=== PATIENT | female | born 1990 | race Caucasian/White ===

== ENCOUNTER 2016-03-20 18:46 | Emergency (ER) | payer OTHER ==
[2016-03-20 18:56] VITALS: TEMP 98.4
--- NOTE | 2016-03-20 19:11 | EDPHY ---
H & P Stated Complaint: LLQ Pain HPI/ROS: CHIEF COMPLAINT:Pelvic pain. HISTORY OF PRESENT ILLNESS: The patient is a 25-year-old female with right- sided chronic pelvic pain presenting with one month of left-sided pelvic pain that has worsened in the past 2 days. The pain is described as squeezing and cramping. It is constant and severe in nature. She admits associated headaches, nonbloody diarrhea, and chills. She denies fever, vomiting, urinary symptoms, vaginal discharge, or other complaints. No recent travel. REVIEW OF SYSTEMS: A ten point review of systems was performed and is negative with the exception of the items mentioned in the HPI. Source: Patient Exam Limitations: No limitations - Personal History Current Tetanus/Diphtheria Vaccine: Yes Current Tetanus Diphtheria and Acellular Pertussis (TDAP): Yes - Medical/Surgical History Hx Asthma: No Hx Chronic Respiratory Disease: No Hx Diabetes: No Hx Cardiac Disease: No Hx Renal Disease: No Hx Cirrhosis: No Hx Alcoholism: No Hx HIV/AIDS: No Hx Splenectomy or Spleen Trauma: No Other PMH: Chronic Pelvic Pain, Anxiety - Social History Smoking Status: Current every day smoker Additional Social History: Smoker, occasional alcohol use. She is , her accompanies her. - Physical Exam Exam: General Appearance: Alert. Vital signs reviewed. Blood pressure 94/68, heart rate 115 at triage. Eyes: Pupils equal and round, no conjunctival injection, no discharge. Anicteric. ENT, Mouth: Mucous membranes are moist, no oropharyngeal erythema or edema. Neck: No lymphadenopathy, supple. Respiratory: Lungs are clear to auscultation; no wheezes, rales, or rhonchi. Cardiovascular: Regular rate and rhythm; no murmur, rub, or gallop. Gastrointestinal: Abdomen is soft with tenderness in the left lower quadrant, no guarding or rebound, no masses or organomegaly, bowel sounds normal. Skin: Warm and dry, no rashes on exposed skin, normal color. Back: Nontender to palpation over the thoracolumbar spine. No CVAT. Extremities: No lower extremity edema, no calf tenderness or swelling. Neurological: Alert and oriented. Moving all four extremities easily and equally. Psychiatric: Normal affect. Constitutional: Initial Vital Signs Temperature (C) 36.9 C 03/20/16 18:54 Heart Rate 115 H 03/20/16 18:54 Respiratory Rate 14 03/20/16 18:54 Blood Pressure 94/68 L 03/20/16 18:54 O2 Sat (%) 94 03/20/16 18:54 O2 Delivery Mode Room Air Allergies/Adverse Reactions: morphine Allergy (Verified 03/20/16 18:54) NSAIDS (Non-Steroidal Anti-Inflamma Allergy (Verified 03/20/16 18:54) prochlorperazine [From Compazine] Allergy (Verified 03/20/16 18:54) prochlorperazine edisylate [From Compazine] Allergy (Verified 03/20/16 18:54) prochlorperazine maleate [From Compazine] Allergy (Verified 03/20/16 18:54) promethazine HCl [From Phenergan] Allergy (Verified 03/20/16 18:54) Home Medications: Medication Instructions Recorded oxyCODONE/APAP 5/325 [Percocet 1 - 2 tab PO Q4H PRN #10 tab 03/20/16 5/325 (RX)] Medical Decision Making - Diagnostics Imaging: Study: Ultrasound of the: Pelvis. Indication: Pain. Results: Negative pelvic ultrasound with minimal fluid noted in the endometrial canal. The study was read by the radiologist, Dr. Marcial. I viewed the images myself on the PACS system. ED Course/Re-evaluation: An IV was established and labs ordered. Dilaudid 1mg IV administered for pain, along with 4mg IV Zofran for nausea. 2222: Reassessed patient. Discussed results of ultrasound. The ultrasound is negative. There is no evidence of ovarian cyst, ruptured cyst, or torsion. She is not , so this is not an ectopic . She does not have any urinary symptoms. She does not have history of STD and denies vaginal discharge. CBC, chemistries, and test are all negative/normal. On reexamination she continues with some mild left lower quadrant tenderness, no peritoneal signs. She is feeling better after pain medication. She is reassured that the ultrasound does not show an ovarian cyst. She has been having diarrhea and it is possible that this is pain secondary to an enteritis. She did not have diarrheal stool while in the emergency department. She does not appear clinically dehydrated. She is comfortable going home with a Percocet prepack. I answered all of her questions. She was given return precautions prior to discharge. Differential Diagnosis: Abdominal pain including but not limited to diverticulitis, ovarian torsion, ovarian cyst, ectopic , gastritis, enteritis, and urinary tract infection. - Data Points Laboratory Results: Laboratory Results 03/20/16 19:30 03/20/16 19:30 Medications Given: Discontinued Medications Hydromorphone HCl (Dilaudid) 1 mg IVP EDNOW ONE Stop: 03/20/16 19:38 Last Admin: 03/20/16 19:42 Dose: 1 mg Hydromorphone HCl (Dilaudid) 0.5 mg IVP EDNOW ONE Stop: 03/20/16 20:16 Last Admin: 03/20/16 20:16 Dose: 0.5 mg Ondansetron HCl (Zofran) 4 mg IVP EDNOW ONE Stop: 03/20/16 19:37 Last Admin: 03/20/16 19:40 Dose: 4 mg Ondansetron HCl (Zofran) 4 mg IVP EDNOW ONE Stop: 03/20/16 20:15 Last Admin: 03/20/16 20:14 Dose: 4 mg Oxycodone/Acetaminophen (Percocet 5/325mg Prepack#4) 1 btl TAKEHOME EDNOW ONE Stop: 03/20/16 23:00 Last Admin: 03/20/16 23:10 Dose: 1 btl Departure - Departure Disposition: Home, Routine, Self-Care Clinical Impression: Pelvic pain Diarrhea Qualifiers: Diarrhea type: unspecified type Qualifier Code: (R19.7) Diarrhea, unspecified Condition: Good Instructions: Oxycodone/Acetaminophen (By mouth), Acute Diarrhea (ED), Pelvic Pain in Women (ED) Additional Instructions: Drink plenty of fluids and be sure to get rest. Call your primary care provider tomorrow to set up a follow up appointment. If you need a primary care provider you have been given the telephone number of one. Return to the emergency department if you experience serious worsening of condition. Referrals: Imtiaz Bernard MD [Medical Doctor] - As per Instructions Prescriptions: oxyCODONE/APAP 5/325 [Percocet 5/325 (RX)] 1 - 2 tab PO Q4H PRN #10 tab PRN Reason: Pain, Severe Report Scribed for: Bailey Elaine Report Scribed by: Gabriel Jurado Date of Report: 03/20/16 Time of Report: 19:18 Physician Review and Approval Statement: 03/20/16 19:11 Portions of this note were transcribed by the medical representative. I, Dr. Bailey Elaine, personally performed the history, physical exam, and medical decision- making; and confirmed the accuracy of the information in the transcribed note.
[2016-03-20] MEDS ORDERED: ONDANSETRON 4 MG/2 ML VIAL IVP ONE ×2 (19:36→20:14)
[2016-03-20] MEDS ORDERED: HYDROmorphONE/DILAUDID 1 MG/ML SYR IVP ONE ×2 (19:37→20:15)
[2016-03-20 19:41] LABS: % IMMATURE GRANULYOCYTES 0.3 % (0.0-1.1); ABSOLUTE IMMATURE GRANULOCYTES 0.02 10^3/uL (0.00-0.10); ADD DIFF? NO; ADD MORPH? NO; ADD SCAN? NO; ATYPICAL LYMPHOCYTE FLAG 10 (0-99); FRAGMENT RBC FLAG 0 (0-99); HEMATOCRIT 45.7 % (38.0-47.0); LEFT SHIFT FLG 0 (0-99); LIPEMIA HEMOLYSIS FLAG 80 (0-99); MEAN CELL HEMOGLOBIN 29.3 pg (27.9-34.1); MEAN CELL HEMOGLOBIN CONCENTR. 32.8 g/dL (32.4-36.7); MEAN CELL VOLUME 89.3 fL (81.5-99.8); MEAN PLATELET VOLUME 10.2 fL (8.7-11.7); PLATELET CLUMPS FLAG 0 (0-99); PLATELET COUNT 326 10^3/uL (150-400); RED BLOOD CELL COUNT 5.12 10^6/uL (4.18-5.33)
[2016-03-20 19:58] LABS: ALANINE AMINOTRANSFERASE 27 IU/L (9-52); ALBUMIN 4.6 g/dL (3.5-5.0); ALKALINE PHOSPHATASE 96 IU/L (38-126); ANION GAP 12 mEq/L (8-16); ASPARTATE AMINOTRANSFERASE 19 IU/L (14-46); BILIRUBIN,TOTAL 0.6 mg/dL (0.1-1.4); CALCIUM 10.2 mg/dL (8.5-10.4); CARBON DIOXIDE 22 mEq/l (22-31); CHLORIDE 109 mEq/L (97-110); CREATININE 0.7 mg/dL (0.6-1.0); GLOMERULAR FILTRATION RATE > 60; GLUCOSE 75 mg/dL (70-100); POTASSIUM 4.2 mEq/L (3.5-5.2); SODIUM 143 mEq/L (134-144); TOTAL PROTEIN 7.5 g/dL (6.3-8.2)
[2016-03-20] MEDS ORDERED: HYDROmorphONE/DILAUDID 1 MG/ML SYR ONE (20:08)
[2016-03-20] MEDS ORDERED: ONDANSETRON 4 MG/2 ML VIAL ONE (20:08)
[2016-03-20 20:35] VITALS: RESP 16
[2016-03-20 21:54] LABS: COLOR YELLOW; LEUKOCYTE ESTERASE,URINE NEGATIVE (NEGATIVE); NITRITE,URINE NEGATIVE (NEGATIVE)
--- NOTE | 2016-03-20 21:58 | US ---
Ultrasound Pelvis Complete (Transabdominal and Endovaginal) History: Pelvic pain in a 25-year-old female.. Technique: Transabdominal and endovaginal ultrasound images were obtained. Endovaginal images obtain ed for better evaluation of the uterine myometrium and adnexa. Findings: The uterus is normal in size and measures 4.3 x 2.0 x 2.9 cm. The endometrial measures 1-2 mm in thickness. There is a trace of fluid in the endometrial canal. No masses are seen. The ovaries are normal in size. The right ovary measures 2.0 x 2.0 x 2.3 cm and the left ovary measur es 1.2 x 2.0 x 1.7 cm. No ovarian cysts are identified. No adnexal masses. No free fluid is identif ied in the pelvis. Color and pulsed Doppler flow is identified in both ovaries . Impression: Negative pelvic ultrasound with minimal fluid noted in the endometrial canal. A preliminary report was called to Dr. Bailey Elaine at 2155 hours in the Emergency Department.
[2016-03-20] MEDS ORDERED: OXYCODONE/APAP 5/325MG PREPACK#4 BTL TAKEHOME ONE (22:59)
[2016-03-20 23:12] VITALS: BP 116/84; PULSE 74; O2SAT 96
== END 2016-03-20 23:11 | disposition home or self-care (01) ==
DX: R10.2 Pelvic and perineal pain (principal); R19.7 Diarrhea, unspecified; F17.200 Nicotine dependence, unspecified, uncomplicated
CPT/HCPCS: 96374; J1170; J2405

== ENCOUNTER 2016-03-28 18:42 | Emergency (ER) | payer OTHER ==
[2016-03-28] MEDS ORDERED: fentaNYL 100 MCG/2 ML INJ IVP ONE ×2 (19:20→19:51)
[2016-03-28] MEDS ORDERED: ONDANSETRON 4 MG/2 ML VIAL IVP ONE ×2 (19:20→19:51)
[2016-03-28] MEDS ORDERED: NS 1,000 ML IV ONE ×2 (19:20→20:15)
--- NOTE | 2016-03-28 19:25 | EDPHY ---
H & P Stated Complaint: abd pain, blood in stool, diarrhea HPI/ROS: CHIEF COMPLAINT: abdominal pain, bloody stools HISTORY OF PRESENT ILLNESS: Abdominal pain of several weeks duration. This is primarily on the left side of the abdomen. It does radiate across abdomen. Severe pain that is worse with palpation or ambulation and Valsalva. Associated with bloody diarrhea that has been on and off. The diarrhea has been present for over 2 weeks, only bloody over the past 2 days. No fever or chills. No urinary complaints. He does have chronic pelvic pain is unchanged. Has an appointment on Thursday with a elevator repairer but has not yet been seen by 1. No other associated complaints or modifying factors. PREVIOUS ABDOMINAL SURGERIES/DIAGNOSES: chronic pelvic pain NPO:This morning REVIEW OF SYSTEMS: Ten systems reviewed and are negative unless otherwise noted in the HPI EXAMINATION: General Appearance: Alert, no distress, Crying Head: normocephalic, atraumatic Eyes: Pupils equal and round, no conjunctival pallor or injection ENT, Mouth: Mucous membranes moist. Uvula midline. No lesions or edema. Neck: Normal inspection, supple, non-tender Respiratory: Lungs are clear to auscultation . No wheezing, rhonchi or crackles. Cardiovascular: Tachycardic rate with regular rhythm. No murmur. Pulses intact distally with symmetric DP pulses at 2+ Gastrointestinal: Abdomen is soft with severe tenderness on the left side. There is guarding. No tympany. No rigidity. No CVA tenderness. Neurological: A&O, nonfocal, normal gait Skin: Warm and dry, no rash . No petechiae or purpura. Extremities: Nontender, no pedal edema Psychiatric: Mood and affect normal DIFFERENTIAL DIAGNOSES: Including but not limited to UC, colitis, Crohn's, diverticulitis, enteritis, appendicitis, gastritis, GI bleed MDM: 7:20 p.m. abdominal pain with nausea but no vomiting. She does report bloody stools. Her history and examination are consistent with colitis versus ulcerative colitis. She does not have a prior diagnosis of this. She does have an appointment with the GI specialist on Thursday that she has not yet seen. 8:30 p.m. leukocytosis with ongoing pain. We have administered 2 rounds of IV pain medication and will consider further. She has also received 1 L fluid will receive a 2nd. Lactic acid is up we will recheck this after 2nd L fluid. 10:00 p.m. I have re-evaluated this patient. CT scan has been done but not read. We are contacting Radiology to inquire about the reading. Her vital signs remained stable and her pain is improved but not resolved. She is in no acute distress but asking for more pain medication at this time. 10:[address] Solis regarding the CT scan of the abdomen and pelvis. There are no acute findings. Specifically no colitis or diverticulitis. Appendix is surgically absent. No findings of any kind. 10:15 p.m. repeat lactic acid has normalized after IV fluid. I did suspect this was due to either appear inflammation or dehydration which does appear to be the case. She has no white count. Her vital signs are normal. Her CT scan does not Reveal any acute findings. She is feeling better at this time and is comfortable with the discharge home with pain medication and nausea medication. She has an appointment on Thursday with a elevator repairer. She is not certain of the name, but no she has an appointment with a physician that day. She will be discharged home with pain and nausea medications, instructions to return to the ER for worsening pain, fever, or bleeding or vomiting. She is comfortable with this plan and discharged home in stable condition ED Precautions: Worsening pain. Fever. Bloody stools. Bloody emesis. Constipation or diarrhea. SUPERVISION: Patient was evaluated in conjunction with the supervising physician. Please see their note for details. Source: Patient, Family Exam Limitations: No limitations - Personal History LMP (Females 10-55): IUD In Place Current Tetanus/Diphtheria Vaccine: Yes Current Tetanus Diphtheria and Acellular Pertussis (TDAP): Yes - Medical/Surgical History Hx Asthma: No Hx Chronic Respiratory Disease: No Hx Diabetes: No Hx Cardiac Disease: No Hx Renal Disease: No Hx Cirrhosis: No Hx Alcoholism: No Hx HIV/AIDS: No Hx Splenectomy or Spleen Trauma: No Other PMH: Chronic Pelvic Pain, Anxiety, - Social History Smoking Status: Current every day smoker Constitutional: Initial Vital Signs Temperature (C) 98.2 F 03/28/16 18:44 Heart Rate 115 H 03/28/16 18:44 Respiratory Rate 26 H 03/28/16 18:44 Blood Pressure 124/119 H 03/28/16 18:44 O2 Sat (%) 98 03/28/16 18:44 O2 Delivery Mode Room Air Allergies/Adverse Reactions: morphine Allergy (Verified 03/20/16 18:54) NSAIDS (Non-Steroidal Anti-Inflamma Allergy (Verified 03/20/16 18:54) prochlorperazine [From Compazine] Allergy (Verified 03/20/16 18:54) prochlorperazine edisylate [From Compazine] Allergy (Verified 03/20/16 18:54) prochlorperazine maleate [From Compazine] Allergy (Verified 03/20/16 18:54) promethazine HCl [From Phenergan] Allergy (Verified 03/20/16 18:54) Home Medications: Medication Instructions Recorded Ambien 03/28/16 Flexeril 03/28/16 GABAPENTIN 03/28/16 Lexapro 03/28/16 Ondansetron Odt [Zofran Odt 4 mg 4 mg PO Q6 PRN #14 tab 03/28/16 (*)] Risperdal 03/28/16 oxyCODONE HCL/ACETAMINOPHEN 1 each PO Q4-6PRN PRN #20 tablet 03/28/16 [Percocet 5-325 mg Tablet] Medical Decision Making - Data Points Laboratory Results: Laboratory Results 03/28/16 19:15 03/28/16 19:15 Microbiology Results: MICROBIOLOGY 03/28/16 20:14 Stool Gastrointestinal Tract Panel (PCR) - Final No Organism Detected Medications Given: Discontinued Medications Fentanyl (Sublimaze) 100 mcg IVP EDNOW ONE Stop: 03/28/16 19:21 Last Admin: 03/28/16 19:35 Dose: 100 mcg Fentanyl (Sublimaze) 100 mcg IVP EDNOW ONE Stop: 03/28/16 19:52 Last Admin: 03/28/16 20:02 Dose: 100 mcg Hydromorphone HCl (Dilaudid) 1 mg IVP EDNOW ONE Stop: 03/28/16 20:42 Last Admin: 03/28/16 20:41 Dose: 1 mg Hydromorphone HCl (Dilaudid) 0.5 mg IVP EDNOW ONE Stop: 03/28/16 21:13 Last Admin: 03/28/16 21:20 Dose: 0.5 mg Hydromorphone HCl (Dilaudid) 0.5 mg IVP EDNOW ONE Stop: 03/28/16 22:19 Last Admin: 03/28/16 22:34 Dose: Not Given Sodium Chloride (Ns) 1,000 mls @ 0 mls/hr IV ONCE ONE PRN Reason: Wide Open Stop: 03/28/16 19:21 Last Admin: 03/28/16 19:26 Dose: 1,000 mls Sodium Chloride (Ns) 1,000 mls @ 0 mls/hr IV ONCE ONE PRN Reason: Wide Open Stop: 03/28/16 20:16 Last Admin: 03/28/16 20:57 Dose: 1,000 mls Ondansetron HCl (Zofran) 4 mg IVP EDNOW ONE Stop: 03/28/16 19:21 Last Admin: 03/28/16 19:35 Dose: 4 mg Ondansetron HCl (Zofran) 4 mg IVP EDNOW ONE Stop: 03/28/16 19:52 Last Admin: 03/28/16 20:02 Dose: 4 mg Oxycodone/Acetaminophen (Percocet 5/325) 1 tab PO EDNOW ONE Stop: 03/28/16 22:19 Last Admin: 03/28/16 22:35 Dose: Not Given Oxycodone/Acetaminophen (Percocet 5/325) 2 tab PO EDNOW ONE Stop: 03/28/16 22:26 Last Admin: 03/28/16 22:34 Dose: 2 tab Oxycodone/Acetaminophen (Percocet 5/325mg Prepack#4) 1 btl TAKEHOME EDNOW ONE Stop: 03/28/16 22:37 Last Admin: 03/28/16 22:47 Dose: 1 btl Departure - Departure Disposition: Home, Routine, Self-Care Clinical Impression: Abdominal pain Qualifiers: Abdominal location: left lower quadrant Qualified Code(s): R10.32 - Left lower quadrant pain Condition: Good Instructions: Oxycodone/Acetaminophen (By mouth), Rectal Bleeding (ED), Ulcerative Colitis (ED) Referrals: NONE *PRIMARY CARE P,. [Primary Care Provider] - As per Instructions Felton Thompson MD [Medical Doctor] - As per Instructions Stand Alone Forms: Work Excuse Prescriptions: Ondansetron Odt [Zofran Odt 4 mg (*)] 4 mg PO Q6 PRN #14 tab PRN Reason: Nausea/Vomiting, Use 1st oxyCODONE HCL/ACETAMINOPHEN [Percocet 5-325 mg Tablet] 1 each PO Q4-6PRN PRN # 20 tablet PRN Reason: Pain, Breakthrough
[2016-03-28 19:27] LABS: % IMMATURE GRANULYOCYTES 0.4 % (0.0-1.1); ABSOLUTE IMMATURE GRANULOCYTES 0.03 10^3/uL (0.00-0.10); ADD DIFF? NO; ADD MORPH? NO; ADD SCAN? NO; ATYPICAL LYMPHOCYTE FLAG 20 (0-99); FRAGMENT RBC FLAG 0 (0-99); HEMATOCRIT 43.4 % (38.0-47.0); HEMOGLOBIN 14.3 g/dL (12.6-16.3); LEFT SHIFT FLG 0 (0-99); LIPEMIA HEMOLYSIS FLAG 80 (0-99); MEAN CELL HEMOGLOBIN 29.3 pg (27.9-34.1); MEAN CELL HEMOGLOBIN CONCENTR. 32.9 g/dL (32.4-36.7); MEAN CELL VOLUME 88.9 fL (81.5-99.8); MEAN PLATELET VOLUME 10.2 fL (8.7-11.7); PLATELET CLUMPS FLAG 10 (0-99); PLATELET COUNT 349 10^3/uL (150-400); RED BLOOD CELL COUNT 4.88 10^6/uL (4.18-5.33); RED CELL DISTRIBUTION WIDTH 14.9 % (11.5-15.2)
[2016-03-28 19:36] LABS: INR 1.03 (0.83-1.16); PROTIME(PATIENT) 13.4 SEC (12.0-15.0)
[2016-03-28 19:37] LABS: APTT 29.7 SEC (23.0-38.0)
[2016-03-28 19:46] LABS: ALANINE AMINOTRANSFERASE 25 IU/L (9-52); ALBUMIN 4.7 g/dL (3.5-5.0); ALKALINE PHOSPHATASE 85 IU/L (38-126); ANION GAP 13 mEq/L (8-16); ASPARTATE AMINOTRANSFERASE 25 IU/L (14-46); BILIRUBIN,TOTAL 0.5 mg/dL (0.1-1.4); BILIRUBIN-CONJUGATED 0.5 mg/dL (0.0-0.5); CALCIUM 9.8 mg/dL (8.5-10.4); CARBON DIOXIDE 20 mEq/l (22-31); CHLORIDE 107 mEq/L (97-110); CREATININE 0.6 mg/dL (0.6-1.0); GLOMERULAR FILTRATION RATE > 60; GLUCOSE 79 mg/dL (70-100); POTASSIUM 4.5 mEq/L (3.5-5.2); SODIUM 140 mEq/L (134-144); TOTAL PROTEIN 7.7 g/dL (6.3-8.2)
[2016-03-28] MEDS ORDERED: ONDANSETRON 4 MG/2 ML VIAL ONE (19:52)
[2016-03-28] MEDS ORDERED: fentaNYL 100 MCG/2 ML INJ ONE (19:52)
[2016-03-28] MEDS ORDERED: IOPAMIDOL (ISOVUE-300) 100 ML BTL IV ONE (19:59)
[2016-03-28 20:05] VITALS: RESP 16
[2016-03-28 20:22] LABS: COLOR YELLOW; LEUKOCYTE ESTERASE,URINE NEGATIVE (NEGATIVE); NITRITE,URINE NEGATIVE (NEGATIVE)
[2016-03-28 20:24] LABS: LACGHOST ORDER
[2016-03-28] MEDS ORDERED: HYDROmorphONE/DILAUDID 1 MG/ML SYR ONE (20:32)
[2016-03-28] MEDS ORDERED: HYDROmorphONE/DILAUDID 1 MG/ML SYR IVP ONE ×3 (20:41→22:18)
[2016-03-28] MEDS ORDERED: OXYCODONE/APAP 5/325 TAB PO ONE ×2 (22:18→22:25)
[2016-03-28] MEDS ORDERED: OXYCODONE/APAP 5/325MG PREPACK#4 BTL TAKEHOME ONE (22:36)
[2016-03-28 22:49] VITALS: BP 112/65; PULSE 78; TEMP 98.1; O2SAT 97
== END 2016-03-28 22:48 | disposition home or self-care (01) ==
DX: R10.32 Left lower quadrant pain (principal); F17.200 Nicotine dependence, unspecified, uncomplicated
CPT/HCPCS: 96374; J1170; J2405; J3010; Q9967

== ENCOUNTER 2016-06-02 19:27 | Emergency (ER) | payer OTHER ==
[2016-06-02] MEDS ORDERED: ONDANSETRON 4 MG/2 ML VIAL IVP ONE (20:44)
[2016-06-02] MEDS ORDERED: MAG HYDROX/AL HYDROX/SIMETH 30 ML UDCUP PO ONE (20:44)
[2016-06-02] MEDS ORDERED: FAMOTIDINE 20 MG/NACL 50 ML IV ONE (20:44)
[2016-06-02] MEDS ORDERED: LIDOCAINE 2% VISCOUS 15 ML UDCUP PO ONE (20:44)
[2016-06-02] MEDS ORDERED: ONDANSETRON 4 MG/2 ML VIAL ONE (20:45)
--- NOTE | 2016-06-02 20:49 | EDPHY ---
H & P Time Seen by Provider: 06/02/16 20:17 HPI/ROS: CHIEF COMPLAINT: Abdominal pain HISTORY OF PRESENT ILLNESS: Patient is a 18-year-old female with a history of anxiety who presents to the emergency department with epigastric abdominal pain. She states that she has had 3 episodes since last night. They occur every time she takes anything by mouth. She describes it as a "labor type pain " except in her epigastrium. She denies any fevers or chills. She has had nausea with no vomiting. She denies diarrhea. She has had no dysuria frequency. No chest pain or shortness of breath. REVIEW OF SYSTEMS: My complete review of systems is negative except as mentioned in the HPI. Past Medical/Surgical History: Includes anxiety Past surgical history: Includes appendectomy Social history: The patient smokes. She is . Smoking Status: Current every day smoker Physical Exam: Vitals noted GENERAL: Anxious, in no acute distress, alert. HEENT: Eyes normal to inspection, normal pharynx, no signs of dehydration. NECK: No thyromegaly, no lymphadenopathy, supple. RESPIRATORY: Clear to auscultation bilaterally, no rales, rhonchi or wheezing. CVS: Regular rate and rhythm, no rubs, murmurs, or gallops. ABDOMEN: Soft, nontender, nondistended, no organomegaly. Benign exam. BACK: Normal to inspection, no CVA tenderness. SKIN: Normal color, no rash, warm, dry. No pallor. EXTREMITIES: No pedal edema, no calf tenderness, no Homans sign or cords, no joint swelling. NEURO/PSYCH: Alert and oriented x3, anxious, normal motor sensory exam. Constitutional: Initial Vital Signs Temperature (C) 36.6 C 06/02/16 19:43 Heart Rate 135 H 06/02/16 19:43 Respiratory Rate 18 06/02/16 19:43 Blood Pressure 120/85 H 06/02/16 19:43 O2 Sat (%) 98 06/02/16 19:43 O2 Delivery Mode Room Air Allergies/Adverse Reactions: amoxicillin Allergy (Verified 06/02/16 19:42) ciprofloxacin Allergy (Verified 06/02/16 19:42) clarithromycin Allergy (Verified 06/02/16 19:42) doxycycline Allergy (Verified 06/02/16 19:42) metronidazole [From Flagyl] Allergy (Verified 06/02/16 19:42) morphine Allergy (Verified 03/20/16 18:54) nitrofurantoin [From Macrobid] Allergy (Verified 06/02/16 19:42) NSAIDS (Non-Steroidal Anti-Inflamma Allergy (Verified 03/20/16 18:54) prochlorperazine [From Compazine] Allergy (Verified 03/20/16 18:54) prochlorperazine edisylate [From Compazine] Allergy (Verified 03/20/16 18:54) prochlorperazine maleate [From Compazine] Allergy (Verified 03/20/16 18:54) promethazine HCl [From Phenergan] Allergy (Verified 03/20/16 18:54) Sulfa (Sulfonamide Antibiotics) Allergy (Verified 06/02/16 19:42) Home Medications: Medication Instructions Recorded Ambien 03/28/16 Flexeril 03/28/16 GABAPENTIN 03/28/16 Lexapro 03/28/16 Ondansetron Odt [Zofran Odt 4 mg 4 mg PO Q6 PRN #14 tab 03/28/16 (*)] Risperdal 03/28/16 Hydrocodone/APAP 5/325 [[place] 1 - 2 tab PO Q4 #9 tab 06/02/16 5/325 (RX)] LORazepam [Ativan (*)] 1 mg PO TID #9 tab 06/02/16 Medical Decision Making ED Course/Re-evaluation: In the emergency department I discussed possible etiologies with the patient. I answered all her questions. IV was placed. She was given normal saline 1 L for hydration. She is given Zofran 4 mg IV for nausea. She was given a GI cocktail for her discomfort. Patient was also given Pepcid 20 mg IV for discomfort. Laboratory studies are pending. Patient's laboratory studies were remarkable for normal CBC. Her chemistry panel is unremarkable. Her LFTs were normal. She had mildly elevated protein. Negative . I rechecked the patient. She stated her nausea has improved. However, when drinking the GI cocktail she complained of discomfort. She appears very anxious on repeat exam. Her abdomen is still soft, nontender nondistended. She was given Ativan 1 mg IV. An ultrasound of her right upper quadrant and chest x-ray were ordered. Eye jason with Jael Doe. She will follow up on the ultrasound and chest x- ray results. Differential Diagnosis: My differential includes but is not limited to pancreatitis, cholecystitis, cholangitis, GERD, hiatal hernia, ACS, acute CO, peptic ulcer disease - Data Points Laboratory Results: Laboratory Results 06/02/16 20:02 06/02/16 20:02 06/02/16 06/02/16 06/02/16 20:02 20:02 20:02 WBC 8.26 10^3/uL 10^3/uL (3.80-9.50) RBC 5.24 10^6/uL 10^6/uL (4.18-5.33) Hgb 15.3 g/dL g/dL (12.6-16.3) Hct 46.4 % % (38.0-47.0) MCV 88.5 fL fL (81.5-99.8) MCH 29.2 pg pg (27.9-34.1) MCHC 33.0 g/dL g/dL (32.4-36.7) RDW 15.1 % % (11.5-15.2) Plt Count 360 10^3/uL 10^3/uL (150-400) MPV 10.2 fL fL (8.7-11.7) Neut % (Auto) 56.9 % % (39.3-74.2) Lymph % (Auto) 35.8 % % (15.0-45.0) [place] % (Auto) 5.3 % % (4.5-13.0) Eos % (Auto) 1.2 % % (0.6-7.6) Baso % (Auto) 0.6 % % (0.3-1.7) Nucleat RBC Rel Count 0.0 % % (0.0-0.2) Absolute Neuts (auto) 4.69 10^3/uL 10^3/uL (1.70-6.50) Absolute Lymphs (auto) 2.96 10^3/uL 10^3/uL (1.00-3.00) Absolute Monos (auto) 0.44 10^3/uL 10^3/uL (0.30-0.80) Absolute Eos (auto) 0.10 10^3/uL 10^3/uL (0.03-0.40) Absolute Basos (auto) 0.05 10^3/uL 10^3/uL (0.02-0.10) Absolute Nucleated RBC 0.00 10^3/uL 10^3/uL (0-0.01) Immature Gran % 0.2 % % (0.0-1.1) Immature Gran # 0.02 10^3/uL 10^3/uL (0.00-0.10) Sodium 141 mEq/L mEq/L (134-144) Potassium 4.0 mEq/L mEq/L (3.5-5.2) Chloride 105 mEq/L mEq/L (97-110) Carbon Dioxide 23 mEq/l mEq/l (22-31) Anion Gap 13 mEq/L mEq/L (8-16) BUN 8 mg/dL mg/dL (7-23) Creatinine 0.7 mg/dL mg/dL (0.6-1.0) Estimated GFR > 60 Glucose 85 mg/dL mg/dL (70-100) Calcium 10.4 mg/dL mg/dL (8.5-10.4) Total Bilirubin 0.9 mg/dL mg/dL (0.1-1.4) Conjugated Bilirubin 0.5 mg/dL mg/dL (0.0-0.5) Unconjugated Bilirubin 0.4 mg/dL mg/dL (0.0-1.1) AST 23 IU/L IU/L (14-46) ALT 21 IU/L IU/L (9-52) Alkaline Phosphatase 99 IU/L IU/L (38-126) Total Protein 8.4 g/dL H g/dL (6.3-8.2) Albumin 5.2 g/dL H g/dL (3.5-5.0) Lipase 71.0 IU/L IU/L (23-300) Beta HCG, Qual NEGATIVE Medications Given: Discontinued Medications Al Hydroxide/Mg Hydroxide (Maalox Susp) 30 ml PO ONCE ONE Stop: 06/02/16 20:45 Last Admin: 06/02/16 20:52 Dose: 30 ml Famotidine/Sodium Chloride (Pepcid 20 Mg (Premix)) 50 mls @ 200 mls/hr IV EDNOW ONE Stop: 06/02/16 20:58 Last Admin: 06/02/16 20:50 Dose: 50 mls Sodium Chloride (Ns) 1,000 mls @ 0 mls/hr IV ONCE ONE PRN Reason: Wide Open Stop: 06/02/16 20:54 Last Admin: 06/02/16 21:08 Dose: 1,000 mls Lidocaine (Lidocaine 2% Viscous) 15 ml PO ONCE ONE Stop: 06/02/16 20:45 Last Admin: 06/02/16 20:53 Dose: 15 ml Ondansetron HCl (Zofran) 4 mg IVP EDNOW ONE Stop: 06/02/16 20:45 Last Admin: 06/02/16 20:53 Dose: 4 mg Departure - Departure Disposition: Home, Routine, Self-Care Clinical Impression: Abdominal pain Qualifiers: Abdominal location: epigastric Qualified Code(s): R10.13 - Epigastric pain Condition: Good Instructions: Abdominal Pain (ED) Additional Instructions: Return with increasing abdominal pain, nausea, vomiting, fever, or any other concerns. Referrals: Jamari Mills MD, FACG [Medical Doctor] - 3-4 days, if not improved Prescriptions: Hydrocodone/APAP 5/325 [[place] 5/325 (RX)] 1 - 2 tab PO Q4 #9 tab LORazepam [Ativan (*)] 1 mg PO TID #9 tab
[2016-06-02 20:52] LABS: % IMMATURE GRANULYOCYTES 0.2 % (0.0-1.1); ABSOLUTE IMMATURE GRANULOCYTES 0.02 10^3/uL (0.00-0.10); ADD DIFF? NO; ADD MORPH? NO; ADD SCAN? NO; ATYPICAL LYMPHOCYTE FLAG 10 (0-99); FRAGMENT RBC FLAG 0 (0-99); HEMATOCRIT 46.4 % (38.0-47.0); HEMOGLOBIN 15.3 g/dL (12.6-16.3); LEFT SHIFT FLG 0 (0-99); LIPEMIA HEMOLYSIS FLAG 80 (0-99); MEAN CELL HEMOGLOBIN 29.2 pg (27.9-34.1); MEAN CELL VOLUME 88.5 fL (81.5-99.8); MEAN PLATELET VOLUME 10.2 fL (8.7-11.7); PLATELET CLUMPS FLAG 0 (0-99); PLATELET COUNT 360 10^3/uL (150-400); RED BLOOD CELL COUNT 5.24 10^6/uL (4.18-5.33); RED CELL DISTRIBUTION WIDTH 15.1 % (11.5-15.2)
[2016-06-02] MEDS ORDERED: NS 1,000 ML IV ONE (20:53)
[2016-06-02] MEDS ORDERED: FAMOTIDINE 20 MG/2 ML SDV ONE (20:55)
[2016-06-02 20:58] LABS: ALANINE AMINOTRANSFERASE 21 IU/L (9-52); ALBUMIN 5.2 g/dL (3.5-5.0); ALKALINE PHOSPHATASE 99 IU/L (38-126); ANION GAP 13 mEq/L (8-16); ASPARTATE AMINOTRANSFERASE 23 IU/L (14-46); BILIRUBIN,TOTAL 0.9 mg/dL (0.1-1.4); BILIRUBIN-CONJUGATED 0.5 mg/dL (0.0-0.5); BILIRUBIN-UNCONJUGATED 0.4 mg/dL (0.0-1.1); CALCIUM 10.4 mg/dL (8.5-10.4); CARBON DIOXIDE 23 mEq/l (22-31); CHLORIDE 105 mEq/L (97-110); CREATININE 0.7 mg/dL (0.6-1.0); GLOMERULAR FILTRATION RATE > 60; GLUCOSE 85 mg/dL (70-100); SODIUM 141 mEq/L (134-144); TOTAL PROTEIN 8.4 g/dL (6.3-8.2)
[2016-06-02] MEDS ORDERED: LORazepam 2 MG/ML INJ IVP ONE (21:21)
[2016-06-02] MEDS ORDERED: LORAZEPAM 1 MG PREPACK#4 BTL TAKEHOME ONE (22:30)
[2016-06-02 22:51] VITALS: BP 113/87; PULSE 89; RESP 16; TEMP 98.4; O2SAT 97
== END 2016-06-02 22:50 | disposition home or self-care (01) ==
DX: R10.13 Epigastric pain (principal); F17.200 Nicotine dependence, unspecified, uncomplicated
CPT/HCPCS: 96365; J2060; J2405

== ENCOUNTER 2016-09-07 12:20 | Emergency (ER) | payer OTHER ==
[2016-09-07 12:28] VITALS: TEMP 97.5
[2016-09-07 12:52] LABS: % IMMATURE GRANULYOCYTES 0.4 % (0.0-1.1); ABSOLUTE IMMATURE GRANULOCYTES 0.03 10^3/uL (0.00-0.10); ADD DIFF? NO; ADD MORPH? NO; ADD SCAN? NO; ATYPICAL LYMPHOCYTE FLAG 10 (0-99); FRAGMENT RBC FLAG 0 (0-99); HEMATOCRIT 45.2 % (38.0-47.0); HEMOGLOBIN 14.6 g/dL (12.6-16.3); LEFT SHIFT FLG 0 (0-99); LIPEMIA HEMOLYSIS FLAG 80 (0-99); MEAN CELL HEMOGLOBIN 30.3 pg (27.9-34.1); MEAN CELL HEMOGLOBIN CONCENTR. 32.3 g/dL (32.4-36.7); MEAN CELL VOLUME 93.8 fL (81.5-99.8); MEAN PLATELET VOLUME 9.8 fL (8.7-11.7); PLATELET CLUMPS FLAG 10 (0-99); PLATELET COUNT 330 10^3/uL (150-400); RED BLOOD CELL COUNT 4.82 10^6/uL (4.18-5.33); RED CELL DISTRIBUTION WIDTH 13.9 % (11.5-15.2)
[2016-09-07] MEDS ORDERED: NS 1,000 ML IV ONE ×4 (12:52→15:54)
[2016-09-07] MEDS ORDERED: LORazepam 2 MG/ML INJ IVP ONE (12:52)
[2016-09-07] MEDS ORDERED: ONDANSETRON 4 MG/2 ML VIAL IVP ONE (12:52)
[2016-09-07 12:57] LABS: ANION GAP 16 mEq/L (8-16); CALCIUM 9.9 mg/dL (8.5-10.4); CARBON DIOXIDE 20 mEq/l (22-31); CHLORIDE 111 mEq/L (97-110); CREATININE 0.7 mg/dL (0.6-1.0); GLOMERULAR FILTRATION RATE > 60; GLUCOSE 69 mg/dL (70-100); POTASSIUM 4.2 mEq/L (3.5-5.2); SODIUM 147 mEq/L (134-144)
[2016-09-07] MEDS ORDERED: HYDROmorphONE/DILAUDID 1 MG/ML SYR IVP ONE ×2 (12:57→14:59)
--- NOTE | 2016-09-07 13:05 | EDPHY ---
H & P Time Seen by Provider: 09/07/16 12:44 HPI/ROS: CHIEF COMPLAINT: Abdominal pain HISTORY OF PRESENT ILLNESS: Patient was seen previously this year in our ED for abdominal pain and on March [address] and on June 02 had a negative right upper quadrant ultrasound. She has implanted control and has had an appendectomy. She has also had a laparoscopy for chronic pelvic pain. She presents with abdominal pain which started around 9 or 10:00 p.m. last night and she describes it is a band around her upper abdomen radiating around into her back not better worse with position and associated with vomiting twice this morning but no diarrhea. No urinary or vaginal symptoms. No bleeding. She does not think she is . Symptoms severe and she says it radiates both up and down. REVIEW OF SYSTEMS: Eye: no change in vision ENT: no sore throat Cardiac: no chest pain or syncope Pulmonary: no cough or SOB, she and her family had a cold which lasted about a month recently but no current symptoms Abdomen: HPI Musculoskeletal: no back pain Skin: no rash Neuro: no headache Constitutional: no fever : no urinary symptoms A comprehensive 10 point review of systems is otherwise negative aside from elements mentioned in the history of present illness. PAST MEDICAL HISTORY: Appendectomy, chronic pain in the pelvis, anxiety. Social history: Tobacco smoker, only occasional alcohol. General Appearance: Alert and conversant, cooperative. Eyes: No scleral icterus. ENT, Mouth: Slightly dry mucous membranes. Respiratory: Normal respiratory effort, breath sounds equal, lungs are clear to auscultation. Cardiovascular: Regular rate and rhythm. Gastrointestinal: Mild diffuse abdominal tenderness but no rebound or guarding. Neurological: Alert and oriented x3. Normally conversant. Face symmetric, normal movement and sensation in all extremities. Skin: Warm and dry, no rashes. Musculoskeletal: No peripheral edema and no joint swelling. Psychiatric: Moderately uncomfortable, moderately anxious. She is sitting up rocking back and forth on the bed. Emergency Department course/MDM: Zofran 4 mg IV, Dilaudid 0.5 mg IV, and Ativan 1 mg IV for anxiety. Patient has a stated morphine allergy but has tolerated Dilaudid in the past without adverse reaction. Normal saline 2 L IV for nausea and vomiting. Labs to include test LFTs and lipase. 1415: Re-evaluated, still has some nausea, pain is decreased but still present. On exam abdomen is soft and nontender. No rebound or guarding. Negative Islas sign. Plan for IV Toradol, 10 mg IV Reglan, GI cocktail. 1520: Still having pain, some upper abdominal pain but no rebound or guarding. CT discussed and consented. 1720: Feeling better, not completely asymptomatic but wants to eat and wants to leave which I think is reasonable. Results discussed. No peritoneal signs at this time. Ovarian or gynecologic source considered but think unlikely given all symptoms above the umbilicus. CT imaging noted, doubt renal infarct with bilateral and epigastric symptoms, urine negative for pyelonephritis. Smoking Status: Current every day smoker Constitutional: Initial Vital Signs Temperature (C) 36.4 C 09/07/16 12:25 Heart Rate 106 H 09/07/16 12:25 Respiratory Rate 18 09/07/16 12:25 Blood Pressure 101/78 09/07/16 12:25 O2 Sat (%) 98 09/07/16 12:25 O2 Delivery Mode Room Air Allergies/Adverse Reactions: amoxicillin Allergy (Verified 06/02/16 19:42) ciprofloxacin Allergy (Verified 06/02/16 19:42) clarithromycin Allergy (Verified 06/02/16 19:42) doxycycline Allergy (Verified 06/02/16 19:42) metronidazole [From Flagyl] Allergy (Verified 06/02/16 19:42) morphine Allergy (Verified 03/20/16 18:54) nitrofurantoin [From Macrobid] Allergy (Verified 06/02/16 19:42) NSAIDS (Non-Steroidal Anti-Inflamma Allergy (Verified 03/20/16 18:54) prochlorperazine [From Compazine] Allergy (Verified 03/20/16 18:54) prochlorperazine edisylate [From Compazine] Allergy (Verified 03/20/16 18:54) prochlorperazine maleate [From Compazine] Allergy (Verified 03/20/16 18:54) promethazine HCl [From Phenergan] Allergy (Verified 03/20/16 18:54) Sulfa (Sulfonamide Antibiotics) Allergy (Verified 06/02/16 19:42) Home Medications: Medication Instructions Recorded Ambien 03/28/16 Flexeril 03/28/16 GABAPENTIN 03/28/16 Lexapro 03/28/16 Ondansetron Odt [Zofran Odt 4 mg 4 mg PO Q6 PRN #14 tab 03/28/16 (*)] Risperdal 03/28/16 Ondansetron Odt [Zofran Odt] 4 mg PO Q4PRN #6 tab 09/07/16 Medical Decision Making - Diagnostics Imaging Results: 1712: CT per Finer normal, except one area of decreased enhancement in right kidney. Differential Diagnosis: Differential considered including but not limited to pancreatitis, cholecystitis , reflux disease, viral or food related, gastroenteritis. - Data Points Laboratory Results: Laboratory Results 09/07/16 12:40 09/07/16 12:40 Medications Given: Discontinued Medications Al Hydroxide/Mg Hydroxide (Maalox Susp) 30 ml PO ONCE ONE Stop: 09/07/16 14:16 Last Admin: 09/07/16 14:28 Dose: 30 ml Hydromorphone HCl (Dilaudid) 0.5 mg IVP EDNOW ONE Stop: 09/07/16 12:58 Last Admin: 09/07/16 13:03 Dose: 0.5 mg Hydromorphone HCl (Dilaudid) 0.5 mg IVP EDNOW ONE Stop: 09/07/16 15:00 Last Admin: 09/07/16 15:15 Dose: 0.5 mg Hyoscyamine Sulfate (Levsin, Hyomax-Sl) 0.25 mg PO ONCE ONE Stop: 09/07/16 14:16 Last Admin: 09/07/16 14:27 Dose: 0.25 mg Sodium Chloride (Ns) 1,000 mls @ 0 mls/hr IV ONCE ONE PRN Reason: Wide Open Stop: 09/07/16 12:53 Last Admin: 09/07/16 13:01 Dose: 1,000 mls Sodium Chloride (Ns) 1,000 mls @ 0 mls/hr IV EDNOW ONE; Wide Open PRN Reason: Protocol Stop: 09/07/16 12:59 Last Admin: 09/07/16 13:04 Dose: Not Given Sodium Chloride (Ns) 1,000 mls @ 0 mls/hr IV EDNOW ONE; Wide Open PRN Reason: Protocol Stop: 09/07/16 12:59 Last Admin: 09/07/16 13:04 Dose: 1,000 mls Ketorolac Tromethamine (Toradol) 15 mg IVP EDNOW ONE Stop: 09/07/16 14:16 Last Admin: 09/07/16 14:33 Dose: Not Given Lidocaine (Lidocaine 2% Viscous) 15 ml PO ONCE ONE Stop: 09/07/16 14:16 Last Admin: 09/07/16 14:28 Dose: 15 ml Lorazepam (Ativan Injection) 1 mg IVP EDNOW ONE Stop: 09/07/16 12:53 Last Admin: 09/07/16 13:03 Dose: 1 mg Ondansetron HCl (Zofran) 4 mg IVP EDNOW ONE Stop: 09/07/16 12:53 Last Admin: 09/07/16 13:01 Dose: 4 mg Departure - Departure Disposition: Home, Routine, Self-Care Clinical Impression: Abdominal pain Qualifiers: Abdominal location: upper abdomen, unspecified Qualified Code(s): R10.10 - Upper abdominal pain, unspecified Condition: Good Instructions: Acute Abdominal Pain (ED) Referrals: Joaquín Live MD [Medical Doctor] - As per Instructions NONE *PRIMARY CARE P,. [Primary Care Provider] - As per Instructions (your PCP in [facility]) Prescriptions: Ondansetron Odt [Zofran Odt] 4 mg PO Q4PRN #6 tab
[2016-09-07 13:14] LABS: ALBUMIN 4.8 g/dL (3.5-5.0); BILIRUBIN,TOTAL 0.6 mg/dL (0.1-1.4); BILIRUBIN-CONJUGATED 0.3 mg/dL (0.0-0.5); BILIRUBIN-UNCONJUGATED 0.3 mg/dL (0.0-1.1); TOTAL PROTEIN 7.5 g/dL (6.3-8.2)
[2016-09-07] MEDS ORDERED: MAG HYDROX/AL HYDROX/SIMETH 30 ML UDCUP PO ONE (14:15)
[2016-09-07] MEDS ORDERED: LIDOCAINE 2% VISCOUS 15 ML UDCUP PO ONE (14:15)
[2016-09-07] MEDS ORDERED: HYOSCYAMINE SULFATE 0.125 MG TAB PO ONE (14:15)
[2016-09-07] MEDS: KETOROLAC 30 MG/1 ML SDV IVP ONE ×2 (14:28→14:33)
[2016-09-07] MEDS ORDERED: IOPAMIDOL (ISOVUE-300) 100 ML BTL ONE (15:56)
[2016-09-07 16:03] LABS: COLOR YELLOW; LEUKOCYTE ESTERASE,URINE NEGATIVE (NEGATIVE); NITRITE,URINE NEGATIVE (NEGATIVE)
[2016-09-07 17:32] VITALS: BP 111/74; PULSE 101; RESP 16; O2SAT 93
== END 2016-09-07 17:33 | disposition home or self-care (01) ==
DX: R10.10 Upper abdominal pain, unspecified (principal); F17.200 Nicotine dependence, unspecified, uncomplicated; E86.9 Volume depletion, unspecified; Z90.49 Acquired absence of other specified parts of digestive tract
CPT/HCPCS: 96374; J1170; J1885; J2060; J2405; Q9967

== ENCOUNTER 2017-06-04 21:07 | Emergency (ER) | payer OTHER ==
--- NOTE | 2017-06-04 21:34 | EDPHY ---
H & P Stated Complaint: R flank pain, gas, nausea. - Personal History Current Tetanus/Diphtheria Vaccine: Yes Current Tetanus Diphtheria and Acellular Pertussis (TDAP): Yes - Medical/Surgical History Hx Asthma: No Hx Chronic Respiratory Disease: No Hx Diabetes: No Hx Cardiac Disease: No Hx Renal Disease: No Hx Cirrhosis: No Hx Alcoholism: No Hx HIV/AIDS: No Hx Splenectomy or Spleen Trauma: No Other PMH: Chronic Pelvic Pain, Anxiety, - Social History Smoking Status: Current every day smoker <Fede Briones - Last Filed: 06/04/17 21:34> <Ray Cason - Last Filed: 06/04/17 23:19> Time Seen by Provider: 06/04/17 21:33 Constitutional: Initial Vital Signs Temperature (C) 36.8 C 06/04/17 21:10 Heart Rate 123 H 06/04/17 21:10 Respiratory Rate 18 06/04/17 21:10 Blood Pressure 125/83 H 06/04/17 21:10 O2 Sat (%) 100 06/04/17 21:10 O2 Delivery Mode Room Air Allergies/Adverse Reactions: amoxicillin Allergy (Verified 06/02/16 19:42) ciprofloxacin Allergy (Verified 06/02/16 19:42) clarithromycin Allergy (Verified 06/02/16 19:42) doxycycline Allergy (Verified 06/02/16 19:42) metronidazole [From Flagyl] Allergy (Verified 06/02/16 19:42) morphine Allergy (Verified 03/20/16 18:54) nitrofurantoin [From Macrobid] Allergy (Verified 06/02/16 19:42) NSAIDS (Non-Steroidal Anti-Inflamma Allergy (Verified 03/20/16 18:54) prochlorperazine [From Compazine] Allergy (Verified 03/20/16 18:54) prochlorperazine edisylate [From Compazine] Allergy (Verified 03/20/16 18:54) prochlorperazine maleate [From Compazine] Allergy (Verified 03/20/16 18:54) promethazine HCl [From Phenergan] Allergy (Verified 03/20/16 18:54) Sulfa (Sulfonamide Antibiotics) Allergy (Verified 06/02/16 19:42) Home Medications: Medication Instructions Recorded Ambien 03/28/16 GABAPENTIN 03/28/16 Ondansetron Odt [Zofran Odt 4 mg 4 mg PO Q6 PRN #14 tab 03/28/16 (*)] Risperdal 03/28/16 Ondansetron Odt [Zofran Odt] 4 mg PO Q4PRN #6 tab 09/07/16 Ondansetron Odt [Zofran Odt 4 mg 4 mg PO Q4 PRN #10 tab 06/04/17 (*)] Medical Decision Making <Fede Briones - Last Filed: 06/04/17 21:34> - Diagnostics Imaging: Discussed imaging studies w/ inbound call center agent Radiologist <Ray aCson - Last Filed: 06/04/17 23:19> - Diagnostics Imaging Results: Imaging Impressions Abdomen/Pelvis CT 06/04/17 21:43 Impression: 1. No evidence of urinary tract calculus. 2. Subtle haziness near the origin of the splenic artery and hepatic artery off the upper abdominal aorta. This is positioned just above the pancreatic head to body. Consider mild pancreatitis. However, the patient is not tender in this region. This is probably incidental finding. 3. Moderate amount of stool in the ascending colon. Attention: This CT examination is specifically designed to evaluate patients who are clinically suspected of having acute obstructive uropathy. This examination does not use radiographic contrast, and as such, provides only a limited evaluation of the abdomen, pelvis and retroperitoneum. If there is further clinical suspicion for pathological conditions other than obstructive uropathy, a complete CT evaluation of the abdomen and pelvis utilizing intravenous, oral, and rectal contrast should be considered. Findings discussed with Richard Cason MD at 23:03 hour, 06/04/2017. ED Course/Re-evaluation: CHIEF COMPLAINT: Right flank pain, nausea HISTORY OF PRESENT ILLNESS: The patient is a 27 y/o female complaining of 3 days of right flank pain, nausea, and polyuria, abruptly worsening 2 hours ago. She has associated constipation, abdominal bloating, and diarrhea. The pain has started spreading down her right leg. She recently finished taking Keflex for a finger infection. She denies fever, hematemesis, or any other associated symptoms. REVIEW OF SYSTEMS: A 10 point review of systems was performed and is negative with the exception of the elements mentioned in the history of present illness. PHYSICAL EXAM: HR, BP, O2 Sat, RR. Temp noted General Appearance: Alert, well hydrated, appropriate, and non-toxic appearing. Head: Atraumatic without scalp tenderness or obvious injury Eyes: Pupils equal, round, reactive to light and accommodation, EOMI, no trauma , no injection. Ears: Clear bilaterally, no perforation, normal landmarks Nose: Atraumatic, no rhinorrhea, clear. Throat: There is no erythema or exudates, no lesions, normal tonsils, mucus membranes moist. Neck: Supple, nontender, no lymphadenopathy. Respiratory: No retractions, no distress, no wheezes, and no accessory muscle use. Lungs are clear to auscultation bilaterally. Cardiovascular: Regular rate and rhythm, no murmurs, rubs, or gallops. Good capillary refill all extremities. Gastrointestinal: Right CVA tenderness. Distended and tender bladder. Abdomen is soft, nontender, no masses, no rebound, no guarding, no peritoneal signs. Musculoskeletal: Normal active ROM of all extremities, atraumatic. Neurological: Alert, appropriate, and interactive. Skin: No rashes, good turgor, no nodules on palpation. Past medical history: Finger infection Past surgical history: Denies Family history: Non-contributory Social history: and child at bedside, unemployed, lives in [place] DIAGNOSTICS/PROCEDURES/CRITICAL CARE TIME: DIFFERENTIAL DIAGNOSIS: The differential diagnosis for the patient's abdominal pain included but was not limited to kidney infection, kidney stone, ovarian cyst, pelvic inflammatory disease, ovarian torsion, urinary tract infection, ectopic , cholecystitis, and appendicitis. MEDICAL DECISION MAKING: The patient presents with right flank tenderness and nausea. She has associated increased urinary frequency. Symptoms abruptly worsened 2 hours ago. On exam, she has right CVA tenderness and bladder distention and tenderness. Plan for non-contrast CT, urinalysis, basic metabolic panel, lipase, liver function, and beta-HCG. (Fede Briones) Other Provider: 2220 care assumed by me from Dr. Briones pending laboratory evaluations and CT scan. 2315 CT scan shows constipation in the ascending colon otherwise negative. No kidney stones. CBC is normal, chemistry is normal. Urinalysis is negative. The patient is improved after IV medications here. I have given her instructions for constipation treatment. I believe there is likely a musculoskeletal component as well. Patient has had an ulcer in the past but is not take a lot of NSAIDs. Will start her on MiraLax and some magnesium citrate. Will also give her some exercises and referral for outpatient follow- up. (Ray Cason) - Data Points Laboratory Results: Laboratory Results 06/04/17 21:52 06/04/17 21:52 06/04/17 06/04/17 06/04/17 22:05 21:52 21:52 WBC RBC Hgb Hct MCV MCH MCHC RDW Plt Count MPV Neut % (Auto) Lymph % (Auto) Luce % (Auto) Eos % (Auto) Baso % (Auto) Nucleat RBC Rel Count Absolute Neuts (auto) Absolute Lymphs (auto) Absolute Monos (auto) Absolute Eos (auto) Absolute Basos (auto) Absolute Nucleated RBC Immature Gran % Immature Gran # Sodium 142 mEq/L mEq/L (135-145) Potassium 4.1 mEq/L mEq/L (3.5-5.2) Chloride 105 mEq/L mEq/L (97-110) Carbon Dioxide 23 mEq/l mEq/l (22-31) Anion Gap 14 mEq/L mEq/L (8-16) BUN 7 mg/dL mg/dL (7-23) Creatinine 0.7 mg/dL mg/dL (0.6-1.0) Estimated GFR > 60 Glucose 82 mg/dL mg/dL (70-100) Calcium 10.0 mg/dL mg/dL (8.5-10.4) Total Bilirubin 0.6 mg/dL mg/dL (0.1-1.4) Conjugated Bilirubin 0.5 mg/dL mg/dL (0.0-0.5) Unconjugated Bilirubin 0.1 mg/dL mg/dL (0.0-1.1) AST 28 IU/L IU/L (14-46) ALT 31 IU/L IU/L (9-52) Alkaline Phosphatase 86 IU/L IU/L (38-126) Total Protein 7.5 g/dL g/dL (6.3-8.2) Albumin 4.6 g/dL g/dL (3.5-5.0) Lipase 61 IU/L IU/L (23-300) Beta HCG, Qual NEGATIVE Urine Color YELLOW Urine Appearance CLEAR Urine pH 8.0 H (5.0-7.5) Ur Specific [place] 1.013 (1.002-1.030) Urine Protein NEGATIVE (NEGATIVE) Urine Ketones NEGATIVE (NEGATIVE) Urine Blood NEGATIVE (NEGATIVE) Urine Nitrate NEGATIVE (NEGATIVE) Urine Bilirubin NEGATIVE (NEGATIVE) Urine Urobilinogen NEGATIVE EU EU (0.2-1.0) Ur Leukocyte Esterase NEGATIVE (NEGATIVE) Urine RBC NONE SEEN /hpf /hpf (0-3) Urine WBC 1-3 /hpf /hpf (0-3) Ur Epithelial Cells TRACE /lpf /lpf (NONE-1+) Urine Glucose NEGATIVE (NEGATIVE) 06/04/17 21:52 WBC 6.22 10^3/uL 10^3/uL (3.80-9.50) RBC 4.88 10^6/uL 10^6/uL (4.18-5.33) Hgb 14.3 g/dL g/dL (12.6-16.3) Hct 43.6 % % (38.0-47.0) MCV 89.3 fL fL (81.5-99.8) MCH 29.3 pg pg (27.9-34.1) MCHC 32.8 g/dL g/dL (32.4-36.7) RDW 14.6 % % (11.5-15.2) Plt Count 297 10^3/uL 10^3/uL (150-400) MPV 10.2 fL fL (8.7-11.7) Neut % (Auto) 59.4 % % (39.3-74.2) Lymph % (Auto) 31.5 % % (15.0-45.0) Luce % (Auto) 5.8 % % (4.5-13.0) Eos % (Auto) 2.4 % % (0.6-7.6) Baso % (Auto) 0.6 % % (0.3-1.7) Nucleat RBC Rel Count 0.0 % % (0.0-0.2) Absolute Neuts (auto) 3.69 10^3/uL 10^3/uL (1.70-6.50) Absolute Lymphs (auto) 1.96 10^3/uL 10^3/uL (1.00-3.00) Absolute Monos (auto) 0.36 10^3/uL 10^3/uL (0.30-0.80) Absolute Eos (auto) 0.15 10^3/uL 10^3/uL (0.03-0.40) Absolute Basos (auto) 0.04 10^3/uL 10^3/uL (0.02-0.10) Absolute Nucleated RBC 0.00 10^3/uL 10^3/uL (0-0.01) Immature Gran % 0.3 % % (0.0-1.1) Immature Gran # 0.02 10^3/uL 10^3/uL (0.00-0.10) Sodium Potassium Chloride Carbon Dioxide Anion Gap BUN Creatinine Estimated GFR Glucose Calcium Total Bilirubin Conjugated Bilirubin Unconjugated Bilirubin AST ALT Alkaline Phosphatase Total Protein Albumin Lipase Beta HCG, Qual Urine Color Urine Appearance Urine pH Ur Specific [place] Urine Protein Urine Ketones Urine Blood Urine Nitrate Urine Bilirubin Urine Urobilinogen Ur Leukocyte Esterase Urine RBC Urine WBC Ur Epithelial Cells Urine Glucose Medications Given: Discontinued Medications Fentanyl (Sublimaze) 50 mcg IVP EDNOW ONE Stop: 06/04/17 22:39 Last Admin: 06/04/17 22:55 Dose: Not Given Hydromorphone HCl (Dilaudid) 1 mg IVP EDNOW ONE Stop: 06/04/17 21:41 Last Admin: 06/04/17 21:55 Dose: 1 mg Hydromorphone HCl (Dilaudid) 0.5 mg IVP EDNOW ONE Stop: 06/04/17 22:56 Last Admin: 06/04/17 22:56 Dose: 0.5 mg Sodium Chloride (Ns) 1,000 mls @ 0 mls/hr IV EDNOW ONE; Wide Open PRN Reason: Protocol Stop: 06/04/17 21:41 Last Admin: 06/04/17 21:56 Dose: 1,000 mls Ondansetron HCl (Zofran) 4 mg IVP EDNOW ONE Stop: 06/04/17 21:41 Last Admin: 06/04/17 21:56 Dose: 4 mg Ondansetron HCl (Zofran) 4 mg IVP EDNOW ONE Stop: 06/04/17 22:39 Last Admin: 06/04/17 22:50 Dose: 4 mg Departure <Fede Briones - Last Filed: 06/04/17 21:34> <Ray Cason - Last Filed: 06/04/17 23:19> - Departure Disposition: Home, Routine, Self-Care Clinical Impression: Constipation, Back pain Condition: Good Instructions: Constipation (ED), Low Back Strain (ED), Lower Back Exercises (ED ) Additional Instructions: Make sure to drink at least eight 8 oz glasses of water a day. You may take MiraLax daily according to package instructions. If you feel constipated drink 1/2 bottle of magnesium citrate. Wait 1-2 hours. If you do not have a bowel movement after that time drink the 2nd half of the bottle. Follow up with primary care physician in 3-4 days for further evaluation. Referrals: Rox Rodriguez MD [[facility] [place] Primary Care Provider] - As per Instructions Prescriptions: Ondansetron Odt [Zofran Odt 4 mg (*)] 4 mg PO Q4 PRN #10 tab PRN Reason: nausea
[2017-06-04] MEDS ORDERED: ONDANSETRON 4 MG/2 ML VIAL IVP ONE ×2 (21:40→22:38)
[2017-06-04] MEDS ORDERED: NS 1,000 ML IV ONE (21:40)
[2017-06-04] MEDS ORDERED: HYDROmorphONE/DILAUDID 2 MG/ML INJ IVP ONE ×2 (21:40→22:55)
[2017-06-04 22:05] LABS: PLATELET COUNT 297 10^3/uL (150-400)
[2017-06-04] MEDS ORDERED: fentaNYL 100 MCG/2 ML INJ IVP ONE (22:38)
[2017-06-04 23:21] VITALS: BP 127/86
== END 2017-06-04 23:33 | disposition home or self-care (01) ==
DX: K59.00 Constipation, unspecified (principal); M54.9 Dorsalgia, unspecified; E86.9 Volume depletion, unspecified; F17.200 Nicotine dependence, unspecified, uncomplicated
CPT/HCPCS: 96374; J1170; J2405; J3010

== ENCOUNTER 2017-08-11 19:53 | Emergency (ER) | payer OTHER ==
[2017-08-11] MEDS ORDERED: OXYCODONE/APAP 5/325 TAB PO ONE (20:09)
--- NOTE | 2017-08-11 20:09 | EDPHY ---
H & P Stated Complaint: R ankle/foot injury, Xrays yesterday, told to come back Time Seen by Provider: 08/11/17 20:07 HPI/ROS: HPI: This is a 27-year-old female who presents with Chief Complaint: R ankle/foot injury, Xrays yesterday, told to come back Location: Right foot Quality: Injury Duration: 3 days ago Signs and Symptoms: No bleeding, no radiation, no numbness, no weakness, no tingling, no incontinence, + decreased range of motion, + swelling, + pain, no fever Timing: Acute Severity: Moderate Context: Patient reports that [place] in [place] Thursday when she everted her right ankle feeling immediate, constant, severe pain in the lateral aspect. She was unable to bear weight on it and had to be assisted down the mountain. She rested for the last 2 days with mild improvement of the swelling and pain to the point where she was walking around. Her needed her for an emergency yesterday and she ran into him. She believes that this made the ankle pain and injury worse. She reports moderate swelling and bruising to the area. She denies any radiation, weakness, numbness. She has an IUD in place Modifying Factors: Ice Comment: ROS: see HPI Constitutional: No fever, no chills, no weight loss Eyes: No blurred vision Respiratory: No shortness of breath, no cough Cardiovascular: No chest pain Gastrointestinal: No nausea, no vomiting no diarrhea Genitourinary: No dysuria Extremities: No myalgias Neurologic: No weakness, no numbness Skin: No rashes Hematologic: No bruising, no bleeding MEDICAL/SURGICAL/SOCIAL HISTORY: Medical history: Chronic pelvic pain, anxiety Surgical history: Denies Social history: with children CONSTITUTIONAL: Extremely anxious adult white female, awake and alert, no obvious distress HEENT: Atraumatic and normocephalic. EXTREMITIES: 2/2 pulses, strength 5/5, right Ankle: Plantar flexion to 50, dorsiflexion to 20. Foot inversion to 35 degree. No tenderness/swelling Anterior talofibular ligament. No tenderness/swelling Calcaneofibular ligament , no tenderness/swelling posterior talofibular ligament, no tenderness/swelling posterior inferior tibiofibular ligament. Achilles tendon intact. Mild to moderate tenderness over the 5th greater than 4th metatarsal; no deformity appreciated. DIP/PIP/MCP flexion/extension intact with good light touch sensation. no deformities, no clubbing, no cyanosis or edema. NEUROLOGICAL: no focal neuro deficits. GCS 15. Light touch sensation intact. SKIN: Warm and dry, no erythema. no rash. Good capillary refill. Source: Patient Exam Limitations: No limitations - Personal History LMP (Females 10-55): IUD In Place Current Tetanus Diphtheria and Acellular Pertussis (TDAP): Yes Tetanus Vaccine Date: 2014 - Medical/Surgical History Hx Asthma: No Hx Chronic Respiratory Disease: No Hx Diabetes: No Hx Cardiac Disease: No Hx Renal Disease: No Hx Cirrhosis: No Hx Alcoholism: No Hx HIV/AIDS: No Hx Splenectomy or Spleen Trauma: No Other PMH: Chronic Pelvic Pain, Anxiety, - Social History Smoking Status: Current every day smoker Constitutional: Initial Vital Signs Temperature (C) 36.5 C 08/11/17 19:57 Heart Rate 110 H 08/11/17 19:57 Respiratory Rate 19 08/11/17 19:57 Blood Pressure 123/81 H 08/11/17 19:57 O2 Sat (%) 97 08/11/17 19:57 O2 Delivery Mode Room Air Allergies/Adverse Reactions: amoxicillin Allergy (Verified 08/11/17 19:57) ciprofloxacin Allergy (Verified 08/11/17 19:57) clarithromycin Allergy (Verified 08/11/17 19:57) doxycycline Allergy (Verified 08/11/17 19:57) metronidazole [From Flagyl] Allergy (Verified 08/11/17 19:57) morphine Allergy (Verified 08/11/17 19:57) nitrofurantoin [From Macrobid] Allergy (Verified 08/11/17 19:57) NSAIDS (Non-Steroidal Anti-Inflamma Allergy (Verified 08/11/17 19:57) prochlorperazine [From Compazine] Allergy (Verified 08/11/17 19:57) prochlorperazine edisylate [From Compazine] Allergy (Verified 08/11/17 19:57) prochlorperazine maleate [From Compazine] Allergy (Verified 08/11/17 19:57) promethazine HCl [From Phenergan] Allergy (Verified 08/11/17 19:57) Sulfa (Sulfonamide Antibiotics) Allergy (Verified 08/11/17 19:57) Home Medications: Medication Instructions Recorded Ambien 03/28/16 GABAPENTIN 03/28/16 Ondansetron Odt [Zofran Odt 4 mg 4 mg PO Q6 PRN #14 tab 03/28/16 (*)] Risperdal 03/28/16 Ondansetron Odt [Zofran Odt] 4 mg PO Q4PRN #6 tab 09/07/16 Ondansetron Odt [Zofran Odt 4 mg 4 mg PO Q4 PRN #10 tab 06/04/17 (*)] oxyCODONE/APAP 5/325 [Percocet 1 - 2 tab PO Q4H PRN #10 tab 08/11/17 5/325 (*)] Medical Decision Making Procedures: Procedure: Splint placement. A right walking boot and crutches were applied by the Emergency Room bioinformatics technician. After application of the splint I returned and re-examined the patient. The splint was adequately immobilizing the joint and distal to the splint the patient's circulation and sensation was intact. ED Course/Re-evaluation: Right foot x-ray ordered Given [facility] x1 X-ray my read shows no fracture, dislocation. Placed in walking boot, crutches, provided podiatry follow-up No signs of neurovascular compromise/tenting of skin/compartment syndrome/ extremities and joints examined above and below area of concern and are neurovascularly intact. This patient was seen under the supervision of my secondary supervising physician. I evaluated care for this patient independently. Discussed this patient with Dr. Briones. Differential Diagnosis: Ankle injury differential diagnosis includes but is not limited to tibia fracture, fibula fracture, metatarsal fracture, LisFranc fracture, achilles tendon rupture, sprain. - Data Points Medications Given: Discontinued Medications Ondansetron HCl (Zofran Odt) 4 mg PO EDNOW ONE Stop: 08/11/17 20:19 Last Admin: 08/11/17 20:21 Dose: 4 mg Oxycodone/Acetaminophen (Percocet 5/325) 1 tab PO EDNOW ONE Stop: 08/11/17 20:10 Last Admin: 08/11/17 20:18 Dose: 1 tab Departure - Departure Disposition: Home, Routine, Self-Care Clinical Impression: Sprain of right foot Qualifiers: Encounter type: initial encounter Qualified Code(s): S93.601A - Unspecified sprain of right foot, initial encounter Stress fracture of foot Qualifiers: Encounter type: initial encounter Laterality: right Qualified Code(s): M84.374A - Stress fracture, right foot, initial encounter for fracture Condition: Good Instructions: Oxycodone/Acetaminophen (By mouth), Crutch Instructions (ED), Foot Sprain (ED), Suspected Fracture (ED) Additional Instructions: Wear the walking boot while out of bed until pain free or seen by Podiatry. Use crutches to aid ambulation. Start with toe-touch weight-bearing status. Take Tylenol 650 mg every 4 hours and/or Ibuprofen 600 mg every 8 hours with food as needed for pain. Use Percocet every 6 hours as needed for severe/break through pain. Do not use Tylenol and Percocet concomitantly. Apply ice for 30 minutes at a time; 2-3 times per day for the next 1-2 days. Follow up with Orthopedics in 10-14 days at which time they will evaluate and recommend with you if conservative management versus further imaging is indicated. The x-rays obtained in the emergency department today demonstrate no evidence of an obvious fracture. Sometimes fractures are not obvious on the initial set of x-rays performed in the ED. For this reason, you should have repeat x-rays performed in 7-10 days if you are having any pain exclude the possibility of an occult fracture. Referrals: Aniket Balbuena DPM [Doctor of Podiatric Medicine] - As per Instructions Prescriptions: oxyCODONE/APAP 5/325 [Percocet 5/325 (*)] 1 - 2 tab PO Q4H PRN #10 tab PRN Reason: Pain, Severe
[2017-08-11] MEDS ORDERED: ONDANSETRON DISINTEGRATING 4 MG TAB PO ONE (20:18)
[2017-08-11] MEDS ORDERED: ONDANSETRON DISINTEGRATING 4 MG TAB ONE (20:20)
[2017-08-11 20:59] VITALS: BP 134/85
== END 2017-08-11 20:50 | disposition home or self-care (01) ==
DX: S93.601A Unspecified sprain of right foot, initial encounter (principal); M84.374A Stress fracture, right foot, initial encounter for fracture; F17.200 Nicotine dependence, unspecified, uncomplicated; X50.9XXA Other and unspecified overexertion or strenuous movements or postures, initial encounter; Y92.89 Other specified places as the place of occurrence of the external cause; Y99.8 Other external cause status; Y93.01 Activity, walking, marching and hiking
CPT/HCPCS: L4386

== ENCOUNTER 2018-04-01 19:36 | Emergency (ER) | payer BC, OTHER ==
[2018-04-01] MEDS ORDERED: NS 1,000 ML IV ONE (19:50)
--- NOTE | 2018-04-01 19:50 | EDPHY ---
H & P Source: Patient Exam Limitations: No limitations - Personal History Tetanus Vaccine Date: 2014 - Medical/Surgical History Hx Asthma: No Hx Chronic Respiratory Disease: No Hx Diabetes: No Hx Cardiac Disease: No Hx Renal Disease: No Hx Cirrhosis: No Hx Alcoholism: No Hx HIV/AIDS: No Hx Splenectomy or Spleen Trauma: No Other PMH: Chronic Pelvic Pain, Anxiety, Ovarian Cysts - Social History Smoking Status: Current every day smoker Time Seen by Provider: 04/01/18 19:45 HPI/ROS: HPI: This is a 27-year-old female who presents with Chief Complaint: Right flank pain Location: Right flank Quality: Pain Duration: 1 week Signs and Symptoms: no fever, + nausea, no vomiting, no hematemesis, no blood in stool, no abdominal bloating, no diarrhea, no back pain, no urinary symptoms , no vaginal bleeding/discharge, no indigestion, no chest pain, no shortness of breath, no rash Timing: Acute, worsening Severity: Moderate Context: Patient reports that she has chronic pelvic pain, anxiety, ovarian cyst, history of appendectomy presents with one-week history of right flank pain that is dull and aching in nature that is nonradiating. She reports that this pain is "different than her other female type pain."She is followed by urogyn in [place] and is scheduled to have laparoscopic surgery in the next 1- 2 months to diagnosed endometriosis. Patient reports that she has nausea but no vomiting, fever, urinary symptoms, blood in her urine, diarrhea. She reports that she has a poor appetite chronically. No history of kidney stones. Patient keeps reiterating that "this is different than my other type of pelvic pain." Patient has multiple antibiotic and pain medication allergies. Modifying Factors: None Comment: ROS: A comprehensive 10 system review of systems is otherwise negative aside from elements mentioned in the history of present illness. MEDICAL/SURGICAL/SOCIAL HISTORY: Medical history: Chronic Pelvic Pain, Anxiety, Ovarian Cysts. Surgical history: Appendectomy, exploratory laparotomy Social history: Unemployed. Has a 3-year-old son. Heavy tobacco user. Denies alcohol, drug use. Family history noncontributory. CONSTITUTIONAL: Anxious, nontoxic-appearing adult white female, smells heavily of tobacco smoke. awake and alert, no obvious distress HEENT: Atraumatic and normocephalic, PERRL, EOMI. Nares patent; no rhinorrhea; no nasal mucosal edema. Tympanic membranes clear. Oropharynx clear, no exudate and moist pink mucosa. Airway patent. No lymphadenopathy. No meningismus. Cardiovascular: Normal S1/S2, regular rate, regular rhythm, without murmur rub or gallop. PULMONARY/CHEST: Symmetrical and nontender. Clear to auscultation bilaterally. Good air movement. No accessory muscle usage. ABDOMEN: Soft, nondistended, mild reproducible flank tenderness, no rebound, no guarding, no peritoneal signs, no masses or organomegaly. No CVAT. Hypoactive bowel sounds heard x4 quadrants. EXTREMITIES: 2/2 pulses, strength 5/5, no deformities, no clubbing, no cyanosis or edema. NEUROLOGICAL: no focal neuro deficits. GCS 15. SKIN: Warm and dry, no erythema. no rash. Good capillary refill. PSYCH: Speech is pressured. (Georgina Hickman) Constitutional: Initial Vital Signs Temperature (C) 36.8 C 04/01/18 19:42 Heart Rate 123 H 04/01/18 19:42 Respiratory Rate 18 04/01/18 19:42 Blood Pressure 120/78 04/01/18 19:42 O2 Sat (%) 100 04/01/18 19:42 O2 Delivery Mode Room Air Allergies/Adverse Reactions: amoxicillin Allergy (Verified 09/17/17 18:06) ciprofloxacin Allergy (Verified 09/17/17 18:06) clarithromycin Allergy (Verified 09/17/17 18:06) doxycycline Allergy (Verified 09/17/17 18:06) metronidazole [From Flagyl] Allergy (Verified 09/17/17 18:06) morphine Allergy (Verified 09/17/17 18:06) nitrofurantoin [From Macrobid] Allergy (Verified 09/17/17 18:06) NSAIDS (Non-Steroidal Anti-Inflamma Allergy (Verified 09/17/17 18:06) prochlorperazine [From Compazine] Allergy (Verified 09/17/17 18:06) prochlorperazine edisylate [From Compazine] Allergy (Verified 09/17/17 18:06) prochlorperazine maleate [From Compazine] Allergy (Verified 08/11/17 19:57) promethazine HCl [From Phenergan] Allergy (Verified 07/03/18 19:57) Sulfa (Sulfonamide Antibiotics) Allergy (Verified 08/11/17 19:57) Home Medications: Medication Instructions Recorded Ambien 03/28/16 GABAPENTIN 03/28/16 Risperdal 03/28/16 Ondansetron Odt [Zofran Odt 4 mg 4 mg PO Q4 PRN #12 tab 04/01/18 (*)] Medical Decision Making - Diagnostics Imaging Results: Imaging Impressions Abdomen/Pelvis CT 04/01/18 19:51 Impression: 1. There is no evidence of nephrolithiasis or obstructive uropathy. 2. Constipation, moreso right-sided. 3. Status post appendectomy. Attention: This CT examination is specifically designed to evaluate patients who are clinically suspected of having acute obstructive uropathy. This examination does not use radiographic contrast, and as such, provides only a limited evaluation of the abdomen, pelvis, and retroperitoneum. If there is further clinical suspicion for pathological conditions other than obstructive uropathy, a complete CT evaluation of the abdomen and pelvis utilizing intravenous, oral, and rectal contrast should be considered. Findings were discussed with Georgina Hickman PA-C at 20:45, on 04/01/2018. ED Course/Re-evaluation: Vital signs reviewed upon arrival in show tachycardia. Placed on nuclear monitoring technician. IV access, laboratory studies, urinalysis, CT abdomen and pelvis scan without contrast ordered Patient given 1 L normal saline, IV Haldol 2.5 mg and IV Benadryl 25 mg 2015: Notified by RN that patient now reports that she has an allergy to Haldol and Benadryl. IV Zofran 4 mg ordered. 2046: Called by radiologist, Dr. Leonard, who reports that CT abdomen and pelvis scan shows no acute intracranial process. Appendix is gone. Moderate constipation on the right side. Patient given Zofran prepack, prescription for Zofran, magnesium citrate Patient advised that she is already taking Colace once daily; will add MiraLax once daily This patient was seen under the supervision of my secondary supervising physician. I evaluated care for this patient with attending. Discussed this patient with Dr. Henderson. (Georgina Hickman) PHYSICIAN DOCUMENTATION: The patient was evaluated and managed by the Physician Crosstie Inspector. My co- signature indicates that I have reviewed this chart and I agree with the findings and plan of care as documented. I am the secondary supervising physician. (Hiwot Henderson) Differential Diagnosis: Flank pain including but not limited to musculoskeletal causes, kidney stone, pyelonephritis, shingles, and intra-abdominal causes such as diverticulitis and appendicitis. (Georgina Hickman) - Data Points Laboratory Results: Laboratory Results 04/01/18 19:54 04/01/18 19:54 04/01/18 04/01/18 04/01/18 19:54 19:54 19:54 WBC 9.68 10^3/uL H 10^3/uL (3.80-9.50) RBC 5.04 10^6/uL 10^6/uL (4.18-5.33) Hgb 15.7 g/dL g/dL (12.6-16.3) Hct 46.7 % % (38.0-47.0) MCV 92.7 fL fL (81.5-99.8) MCH 31.2 pg pg (27.9-34.1) MCHC 33.6 g/dL g/dL (32.4-36.7) RDW 12.3 % % (11.5-15.2) Plt Count 296 10^3/uL 10^3/uL (150-400) MPV 9.9 fL fL (8.7-11.7) Neut % (Auto) 62.5 % % (39.3-74.2) Lymph % (Auto) 28.9 % % (15.0-45.0) [place] % (Auto) 5.9 % % (4.5-13.0) Eos % (Auto) 1.9 % % (0.6-7.6) Baso % (Auto) 0.6 % % (0.3-1.7) Nucleat RBC Rel Count 0.0 % % (0.0-0.2) Absolute Neuts (auto) 6.05 10^3/uL 10^3/uL (1.70-6.50) Absolute Lymphs (auto) 2.80 10^3/uL 10^3/uL (1.00-3.00) Absolute Monos (auto) 0.57 10^3/uL 10^3/uL (0.30-0.80) Absolute Eos (auto) 0.18 10^3/uL 10^3/uL (0.03-0.40) Absolute Basos (auto) 0.06 10^3/uL 10^3/uL (0.02-0.10) Absolute Nucleated RBC 0.00 10^3/uL 10^3/uL (0-0.01) Immature Gran % 0.2 % % (0.0-1.1) Immature Gran # 0.02 10^3/uL 10^3/uL (0.00-0.10) Sodium 139 mEq/L mEq/L (135-145) Potassium 3.5 mEq/L mEq/L (3.5-5.2) Chloride 106 mEq/L mEq/L (97-110) Carbon Dioxide 24 mEq/l mEq/l (22-31) Anion Gap 9 mEq/L mEq/L (6-14) BUN 11 mg/dL mg/dL (7-23) Creatinine 0.9 mg/dL mg/dL (0.6-1.0) Estimated GFR > 60 Glucose 84 mg/dL mg/dL (70-100) Calcium 9.7 mg/dL mg/dL (8.5-10.4) Total Bilirubin 0.7 mg/dL mg/dL (0.1-1.4) Conjugated Bilirubin 0.4 mg/dL mg/dL (0.0-0.5) Unconjugated Bilirubin 0.3 mg/dL mg/dL (0.0-1.1) AST 20 IU/L IU/L (14-46) ALT 27 IU/L IU/L (9-52) Alkaline Phosphatase 90 IU/L IU/L (38-126) Total Protein 7.7 g/dL g/dL (6.3-8.2) Albumin 4.7 g/dL g/dL (3.5-5.0) Lipase 135 IU/L IU/L (23-300) Beta HCG, Qual NEGATIVE Medications Given: Discontinued Medications Diphenhydramine HCl (Benadryl Injection) 25 mg IVP EDNOW ONE Stop: 04/01/18 19:52 Last Admin: 04/01/18 20:05 Dose: Not Given Haloperidol Lactate (Haldol Injection) 2.5 mg IVP EDNOW ONE Stop: 04/01/18 19:52 Last Admin: 04/01/18 20:07 Dose: Not Given Sodium Chloride (Ns) 1,000 mls @ 0 mls/hr IV EDNOW ONE; Wide Open PRN Reason: Protocol Stop: 04/01/18 19:51 Last Admin: 04/01/18 20:03 Dose: 1,000 mls Magnesium Citrate (Magnesium Citrate) 300 ml PO ONCE ONE Stop: 04/01/18 20:53 Last Admin: 04/01/18 21:01 Dose: 1 btl Ondansetron HCl (Zofran) 4 mg IVP EDNOW ONE Stop: 04/01/18 20:17 Last Admin: 04/01/18 20:19 Dose: 4 mg Ondansetron HCl (Zofran Odt 4 Mg Prepack#2) 1 btl TAKEHOME EDNOW ONE Stop: 04/01/18 20:53 Last Admin: 04/01/18 21:00 Dose: 1 btl Departure - Departure Disposition: Home, Routine, Self-Care Clinical Impression: Constipation by delayed colonic transit Condition: Good Instructions: Polyethylene Glycol 3350 (By mouth), Magnesium Citrate (By mouth) , Constipation (ED), High Fiber Diet (ED) Additional Instructions: Consume a minimum of 8-10 glasses of water or electrolyte fluid replacement drinks that include Gatorade, Powerade, Pedialyte. Eat a bland diet for the next 48 hours and then slowly advance as tolerated. Take Zofran 1 tab every 4 hours as needed for nausea, vomiting. When you arrive at home this evening, take 150 mL of magnesium citrate. After 4 hr take the other 150 mL of magnesium citrate. Need to take Colace once daily. Start taking [id number] MiraLax once daily. Return to the Emergency Room if symptoms do not resolve in the next 48-72 hours , you spike a fever > 102 F, or experience intractable abdominal pain/nausea/ vomiting. Referrals: PCP Not In,Dictionary [Medical Doctor] - As per Instructions Prescriptions: Ondansetron Odt [Zofran Odt 4 mg (*)] 4 mg PO Q4 PRN #12 tab PRN Reason: Nausea/Vomiting, Use 1st
[2018-04-01] MEDS ORDERED: HALOPERIDOL LACT 5 MG/ML INJ IVP ONE (19:51)
[2018-04-01 20:06] LABS: PLATELET COUNT 296 10^3/uL (150-400)
[2018-04-01] MEDS ORDERED: ONDANSETRON 4 MG/2 ML VIAL IVP ONE (20:16)
[2018-04-01] MEDS ORDERED: MAGNESIUM CITRATE 300 ML BOTTLE PO ONE (20:52)
[2018-04-01] MEDS ORDERED: ONDANSETRON 4MG PREPACK#2 BTL TAKEHOME ONE (20:52)
[2018-04-01 21:04] VITALS: BP 106/66
== END 2018-04-01 21:08 | disposition home or self-care (01) ==
DX: K59.01 Slow transit constipation (principal)
CPT/HCPCS: 96374; J1200; J1630; J2405

== ENCOUNTER 2018-07-14 10:03 | Day surgery (SDC) | payer BC, OTHER | END 2018-07-14 16:42 | disposition home or self-care (01) | LOC: FSGY 10:03 ==

== ENCOUNTER 2018-07-19 17:01 | Emergency (ER) | payer BC, OTHER | END 2018-07-19 20:16 | disposition home or self-care (01) ==